=== PATIENT | male | born 1950 | race Caucasian/White ===

== ENCOUNTER 2018-03-12 20:10 | Inpatient (IN) | payer OTHER ==
[2018-03-12 20:15] VITALS: BMI 33.6
[2018-03-12] MEDS ORDERED: AMIODARONE HCL 150 MG/3 ML VIAL IVPUSH ONE ×2 (20:41→20:44)
--- NOTE | 2018-03-12 20:44 | PDOC ---
History of Present Illness - History of Present Illness Initial Comments: 03/12/18 20:39 Mr. Saunders is a 67 yo male w/ pmh of HTN, hypothyroidism, arrythmia s/p pacemaker/defibrillator placement who presents for evaluation of defibrillator going off. Patient reports he was walking around today (patient is visiting [facility] ) and felt a warm sensation in his chest before his defibrillator went off (2x) . Patient reports he had a 3rd episode while in ED. 4th episode occurred during interview. The patient denies shortness of breath, headache and dizziness. Denies fever, chills, nausea, vomit, diarrhea and constipation. Denies dysuria, frequency, urgency and hematuria. Allergies: Penicillins <Ton Cool - Last Filed: 03/12/18 21:34> <Saulo Cat - Last Filed: 03/13/18 21:52> - General Chief Complaint: Shortness of Breath Stated Complaint: PACEMAKER PROBLEM Time Seen by Provider: 03/12/18 20:37 Past History - Past Medical History Cancer: Yes (SQUAMOUS CEEL CARCINOMA) Cardiac Disorders: Yes COPD: No HTN: Yes Hypercholesterolemia: Yes Thyroid Disease: Yes Other medical history: GOUT - Surgical History Appendectomy: Yes Cardiac Surgery: Yes (DEFIBRILLATOR) Cholecystectomy: Yes - Suicide/Smoking/Psychosocial Hx Smoking History: Never smoked <Ton Cool - Last Filed: 03/12/18 21:34> <Saulo Cat - Last Filed: 03/13/18 21:52> - Past Medical History Allergies/Adverse Reactions: Allergies Allergy/AdvReac Type Severity Reaction Status Date / Time Penicillins Allergy Verified 03/12/18 20:16 Review of Systems - Review of Systems Comments:: 03/12/18 20:41 GENERAL/CONSTITUTIONAL: No fever or chills. No weakness. HEAD, EYES, EARS, NOSE AND THROAT: No change in vision. No ear pain or discharge. No sore throat. CARDIOVASCULAR: +Cardiac symptoms as described. RESPIRATORY: No cough, wheezing, or hemoptysis. GASTROINTESTINAL: No nausea, vomiting, diarrhea or constipation. GENITOURINARY: No dysuria, frequency, or change in urination. MUSCULOSKELETAL: No joint or muscle swelling or pain. No neck or back pain. SKIN: No rash NEUROLOGIC: No headache, vertigo, loss of consciousness, or change in strength/ sensation. ENDOCRINE: No increased thirst. No abnormal weight change HEMATOLOGIC/LYMPHATIC: No anemia, easy bleeding, or history of blood clots. ALLERGIC/IMMUNOLOGIC: No hives or skin allergy. <Ton Cool - Last Filed: 03/12/18 21:34> *Physical Exam - Vital Signs Last Vital Signs Temp Pulse Resp BP Pulse Ox 97.7 F 85 18 169/88 97 03/12/18 20:11 03/12/18 20:11 03/12/18 20:11 03/12/18 20:11 03/12/18 20:11 <Ton Cool - Last Filed: 03/12/18 21:34> - Vital Signs Last Vital Signs Temp Pulse Resp BP Pulse Ox 98.7 F 68 20 131/72 97 03/13/18 20:37 03/13/18 20:37 03/13/18 20:37 03/13/18 20:37 03/13/18 20:37 <Saulo Cat - Last Filed: 03/13/18 21:52> ED Treatment Course - LABORATORY CBC & Chemistry Diagram: 03/12/18 20:42 03/12/18 20:42 - RADIOLOGY Radiology Studies Ordered: Category Date Time Status CHEST X-RAY PORTABLE* [RAD] Stat Radiology 03/12/18 20:38 Ordered <Ton Cool - Last Filed: 03/12/18 21:34> - LABORATORY CBC & Chemistry Diagram: 03/12/18 20:42 03/13/18 06:50 - ADDITIONAL ORDERS Additional order review: 03/12/18 20:42 RBC 5.16 MCV 92.4 MCHC 34.2 RDW 14.3 MPV 7.1 L Neutrophils % 56.7 Lymphocytes % 22.5 Monocytes % 14.1 H Eosinophils % 5.6 H Basophils % 1.1 - Medications Given in the ED: ED Medications Discontinued Medications Generic Name Dose Route Start Last Admin Trade Name Freq PRN Reason Stop Dose Admin Amiodarone HCl 150 mg 03/12/18 20:41 03/12/18 20:56 Cordarone Injection - IVPUSH 03/12/18 20:42 Not Given ONCE ONE Amiodarone HCl 300 mg 03/12/18 20:44 03/12/18 20:50 Cordarone Injection - IVPUSH 03/12/18 20:45 300 mg ONCE ONE Administration Carvedilol 6.25 mg 03/13/18 10:00 03/13/18 09:57 Coreg - PO 6.25 mg BID LESLY Administration Heparin Sodium (Porcine) 5,000 unit 03/13/18 06:00 03/13/18 06:17 Heparin - SQ 5,000 unit TID LESLY Administration Potassium Chloride 10 meq in 100 mls @ 100 mls/hr 03/13/18 01:00 03/13/18 02: 07 Potassium Chloride 10 Meq Premix Ivpb - IVPB 03/13/18 02:59 Not Given Q60M LESLY Morphine Sulfate 4 mg 03/12/18 20:48 03/12/18 21:02 Morphine Injection - IVPUSH 03/12/18 20:49 4 mg ONCE ONE Administration Potassium Chloride 40 meq 03/13/18 00:33 03/13/18 01:28 K-Dur - PO 03/13/18 00:34 40 meq ONCE ONE Administration Potassium Chloride 40 meq 03/13/18 10:00 03/13/18 09:57 K-Dur - PO 03/13/18 10:01 40 meq ONCE ONE Administration <Saulo Cat - Last Filed: 03/13/18 21:52> Medical Decision Making - Medical Decision Making 03/12/18 20:48 Mr. Saunders is a 67 yo male w/ pmh as described who presents for evaluation of defibrillator firing. Discussed patient with Dr. Loredo (cardiology functional consultant) who recommended 300mg amiodarone push in addition to maintenance drip. Plan for lidocaine if refractory to this. Transfer if refractory to lido. Will run 12- lead rhythm strip and attempt to capture episode Patient currently pending workup; amiodarone being administered. 03/12/18 21:34 No further episodes after amiodarone push. Drip started as well. Labs grossly unconcerning as below. Admitting patient for cardiology workup. Laboratory Results - last 24 hr 03/12/18 03/12/18 03/12/18 20:42 20:42 20:42 WBC 9.0 RBC 5.16 Hgb 16.3 Hct 47.7 MCV 92.4 MCH 31.6 MCHC 34.2 RDW 14.3 Plt Count 212 MPV 7.1 L Absolute Neuts (auto) 5.1 Neutrophils % 56.7 Lymphocytes % 22.5 Monocytes % 14.1 H Eosinophils % 5.6 H Basophils % 1.1 Nucleated RBC % 0 Sodium 141 Potassium 3.5 Chloride 105 Carbon Dioxide 24 Anion Gap 12 BUN 21 H Creatinine 1.0 Creat Clearance w eGFR > 60 Random Glucose 146 H Calcium 9.3 Magnesium 2.0 Total Bilirubin 0.7 AST 21 ALT 39 Alkaline Phosphatase 116 Creatine Kinase 125 Troponin I < 0.02 B-Natriuretic Peptide 179.75 H Total Protein 7.1 Albumin 3.9 <Ton Cool - Last Filed: 03/12/18 21:34> *DC/Admit/Observation/Transfer - Discharge Dispostion Decision to Admit order: Yes <Ton Cool - Last Filed: 03/12/18 21:34> <Saulo Cat - Last Filed: 03/13/18 21:52> Diagnosis at time of Disposition: Defibrillator discharge, Ventricular tachycardia
[2018-03-12] MEDS ORDERED: morphine CARPU-JECT 4 MG/1 ML DISP.SYRIN IVPUSH ONE (20:48)
[2018-03-12] MEDS ORDERED: AMIODARONE HCL 150 MG/3 ML VIAL ONE (20:49)
[2018-03-12 20:51] LABS: BASO % 1.1 % (0-2.0); EOS % 5.6 % (0-4.5); HEMATOCRIT 47.7 % (35.4-49); HEMOGLOBIN 16.3 GM/dL (11.7-16.9); LYMPH % 22.5 % (8-40); MCH 31.6 pg (25.7-33.7); MCHC 34.2 g/dl (32.0-35.9); MEAN CELL VOLUME 92.4 fl (80-96); MEAN PLT VOLUME 7.1 fl (7.5-11.1); MONO % 14.1 % (3.8-10.2); NEUT % 56.7 % (42.8-82.8); PLATELET COUNT 212 K/MM3 (134-434); RBC 5.16 M/mm3 (4.00-5.60); RDW 14.3 % (11.9-15.9)
--- NOTE | 2018-03-12 20:54 | PDOC ---
Attending Attestation - Resident Resident Name: Ton Cool - ED Attending Attestation I have performed the following: I have examined & evaluated the patient, The case was reviewed & discussed with the resident, I agree w/resident's findings & plan, Exceptions are as noted - HPI HPI: 03/12/18 20:48 67y M hx of thyroid disease, gout, HTN, cardiac disease s/p AICD presents for evaluation of his PM going off. Pt states he is visiting from [place] and was feeling well today while he was touring, but feels worn out. He was on the bus this evening when he felt a 'warm sensation' prior to the deibrilatorgoing off. He notes it has gone off another time in the ED. Pt notes he was otherwise asypmtmatic earlier today without any cp, sob, lightheadedness, n/v, diaphoresis , leg swelling. During our evaluation, pt had a run of VT with a shock that was delivered by his AICD. Will start amiodarone for his VT will give morphine will ck labs/lytes/tsh - Physicial Exam PE: GENERAL: The patient is awake, alert, and fully oriented, Nontoxic - in no acute distress. obese HEAD: Normocephalic, atraumatic. EYES: extraocular movements intact, sclera anicteric, conjunctiva clear. ENT: Normal voice, Moist mucous membranes. NECK: Normal range of motion, supple LUNGS: Breath sounds equal, clear to auscultation bilaterally. No wheezes, no rhonchi, no rales. HEART: regular, AICD in left chest ABDOMEN: Soft, nontender, No guarding, no rebound. . No CVA tenderness EXTREMITIES: Normal range of motion, trace edema. NEUROLOGICAL: No facial assymetry, Normal speech, PSYCH: Normal mood, normal affect. SKIN: Warm, Dry, normal turgor, - Critical Care Time Total Critical Care Time: 45 Critical Care Statement: The care of this patient involved high complexity decision making to prevent further life threatening deterioration of the patient 's condition and/or to evaluate & treat vital organ system(s) failure or risk of failure. - Medical Decision Making 03/12/18 23:58 pt stable on amio gtt no further events labs unremarkble will admit to tele Heart Score/ECG Review - ECG Impressions Comment:: 03/12/18 20:54 Paced ventricular rhthm rate of 91 no changes suggestive of acute ischemia via sgarbossa criteria
[2018-03-12] MEDS ORDERED: morphine SULFATE 4 MG/ML VIAL ONE (20:58)
[2018-03-12 21:19] LABS: ALBUMIN 3.9 g/dl (3.4-5.0); ANION GAP 12 MMOL/L (8-16); BILIRUBIN,TOTAL 0.7 mg/dL (0.2-1.0); BLOOD UREA NITROGEN 21 mg/dL (7-18); CALCIUM 9.3 mg/dL (8.5-10.1); CHLORIDE 105 mmol/L (98-107); CO2 24 mmol/L (21-32); GLUCOSE,RANDOM 146 mg/dL (74-106); POTASSIUM 3.5 mmol/L (3.5-5.1); SGOT/AST 21 U/L (15-37); SGPT/ALT 39 U/L (13-61); SODIUM 141 mmol/L (136-145); TOT PROT 7.1 g/dl (6.4-8.2)
[2018-03-12 21:22] LABS: ALK PHOS 116 U/L (45-117)
[2018-03-12 21:29] LABS: N-TERMINAL BNP 179.75 pg/ml (5-125)
[2018-03-12] MEDS: AMIODARONE IN DEXTROSE,ISO-OSM 360 MG/200 ML BAG IVPB SCH (21:51)
--- NOTE | 2018-03-12 22:36 | PN ---
Teaching Attending Note Name of Resident: Jennifer Choi ATTENDING PHYSICIAN STATEMENT I saw and evaluated the patient. I reviewed the resident's note and discussed the case with the resident. I agree with the resident's findings and plan as documented. SUBJECTIVE: Patient is a 67 year old man with history of treated throat cancer, right knee replacement, hypothyroidism, penicillin allergy, gout, HTN, and cardiac disease s/p AICD presents for evaluation of his PM going off. He is visiting from [place] and was feeling well today while he was touring, but feels worn out. He was on the bus this evening when he felt a 'warm sensation' prior to the defibrillator going off. He notes it has gone off another time in the ED. Pt notes he was otherwise asymptomatic earlier today without any chest pain, sob, lightheadedness, n/v, diaphoresis, or leg swelling. During evaluation by ER staff, he had a run of VT with a shock that was delivered by his AICD. In the ER he got a bolus dose of amiodarone and then the drip for VTach. OBJECTIVE: Alert Vital Signs Period Temp Pulse Resp BP Sys/Schaeffer Pulse Ox Last 24 Hr 97.7 F 85 18 169/88 97 HEENT: No Jaundice, eye redness or discharge, PERRLA, EOMI. Dry mucous membrane. Normocephalic, atraumatic. External ears are normal and hearing is grossly intact. No nasal discharge. Neck: Supple, nontender. Surgiacl scar right neck. No palpable adenopathy or thyromegaly. No JVD Chest: Good effort. Fine right basilar rales. Clear to percussion. Heart: Regular. No S3, rub or murmur Abdomen: Not distended, soft, nontender and no HSM. No rebound or guarding. Normoactive bowel sounds. Ext: Peripheral pulses intact. No leg edema. Skin: Warm and dry. No petechiae, rash or ecchymosis. Neuro: Alert. Oriented x3. CN 2-12 grossly intact. Sensation grossly intact in all four extremities and DTR are symmetric. Current Medications Generic Name Dose Route Start Last Admin Trade Name Freq PRN Reason Stop Dose Admin Amiodarone HCl/Dextrose 360 mg in 200 mls @ 16.667 mls/hr 03/12/18 21:00 21:51 Nexterone 360 Mg/200 Ml Bag IVPB 0.5 mg/min TITR LESLY 16.667 mls/hr Administration Protocol 0.5 MG/MIN Abnormal Lab Results 03/12/18 03/12/18 03/12/18 20:42 20:42 20:42 MPV 7.1 L Monocytes % 14.1 H Eosinophils % 5.6 H BUN 21 H Random Glucose 146 H B-Natriuretic Peptide 179.75 H ASSESSMENT AND PLAN: 1. Vtach/Defibrillator discharge - Continue IV amiodarone drip on telemetry. No changes of ACS on EKG. Will repeat troponin and EKG, give IV and PO KCL (get K > 4) , check free T4, phosphate, HbA1c and encourage liberal oral fluid intake. Call his hot wort settler and arrange for defibrillator interrogation. 2. Obesity - Will provide patient all the necessary assistance, counseling and positive reinforcement to facilitate weight loss. Consult correspondence representative. 3. DVT prophylaxis - Lovenox 40 mg SQ q 24 hours. 4. Advance directives - Full code
[2018-03-13 00:14] LABS: URINE APPEARANCE CLEAR; URINE BILIRUBIN NEGATIVE (<2.0 mg/dL); URINE COLOR STRAW; URINE GLUCOSE (UA) NEGATIVE (NEGATIVE); URINE KETONE NEGATIVE (NEGATIVE); URINE LEUK ESTERASE NEGATIVE (NEGATIVE); URINE NITRITE NEGATIVE (NEGATIVE); URINE PROTEIN NEGATIVE (NEGATIVE); URINE UROBILINOGEN NEGATIVE mg/dL (0.2-1.0)
[2018-03-13 00:17] LABS: URINE HYALINE CAST 1 /lpf; URINE MUCUS RARE
--- NOTE | 2018-03-13 00:26 | HP ---
CHIEF COMPLAINT: Defibrillator shock PCP: PCP in [place] Housekeeper Supervisor: Dr. Liam Mullins ([phone]) HISTORY OF PRESENT ILLNESS: Patient is a 67 year old male with a significant PMHx of CAD S/P NJ and AICD, HTN, HLD, Hypothyroidism (radiation induced), gout, throat cancer who presented today after being shocked by his defibrillator twice. Patient reports he is visiting from [place] and arrived yesterday to [facility]. He woke up this morning in his normal state of health and went walking around [place] with his . Patient reports he did not drink much water today and his first meal around 13: 00. Patient then states around 14:00 when he was sitting in the bus, he became flushed with a feeling of "hot flashes" throughout his body, and was then shocked by his defibrillator. Patient then went back to his hotel room and around 19:00 he started feeling the hot flashes and flushing and was then shocked again, which promoted this hospital visit. When he arrived, patient had multiple witnessed episodes of his defibrillator shocking him by the ED staff. He was found to have V-tach on the monitor and patient was placed on an Amio drip. According to patient, he had a defibrillator placed from [id number] and was never shocked by it. He had is upgraded and replaced last year and has had only one episode of his defibrillator shocking him. Patient gets his defibrillator interrogated every three months Patient reports seeing his Housekeeper Supervisor every year Otherwise, patient denies any chest pain, palpitations, shortness of breath, dizziness, lightheadedness, acute vision changes, fever, chills, nausea, vomiting, abdominal pain, constipation, diarrhea, dysuria, hematuria, frequency , urgency. ER course was notable for: (1) Defibrillator discharged x 3-4 times (2) Amiodarone drip started (3) Recent Travel: Traveling from [place] PAST MEDICAL HISTORY: CAD S/P NJ and AICD, HTN, HLD, Hypothyroidism (radiation induced), throat cancer PAST SURGICAL HISTORY: Right knee replacement (2016) Cholecystectomy (2012) Appendectomy Hernia Repair x3 (1983,1991,1993) Social History: Retired [employer] . Retired [employer] worker. Lives with . Smoking: Former 3PPD smoker. Quit 1990 Alcohol: Former Alcohol abuse. Last drink 1980 Drugs: Denies Family History: Father- from esophageal cancer, Had an NJ at age 64 Mother- strokr Allergies: Penicillins Allergy (Verified 03/12/18 20:16). HIVES HOME MEDICATIONS: Home Medications Medication Instructions Recorded Allopurinol [Zyloprim -] 100 mg PO DAILY 03/12/18 Aspirin [ASA -] 81 mg PO DAILY 03/12/18 Carvedilol [Coreg -] 6.25 mg PO BID 03/12/18 Cholecalciferol (Vitamin D3) 2,000 unit PO DAILY 03/12/18 [Vitamin D3] Levothyroxine [Synthroid -] 125 mcg PO DAILY 03/12/18 Lisinopril [Prinivil] 20 mg PO DAILY 03/12/18 [place]-3/Dha/Epa/Fish Oil [Fish Oil 2,000 mg PO DAILY 03/12/18 1,000 mg Softgel] Saw/Vit E/Sod Ebony/Lyc/Beta/Pyg 2 each PO DAILY 03/12/18 [Prostate Health Caplet] Simvastatin 10 mg PO DAILY 03/12/18 REVIEW OF SYSTEMS CONSTITUTIONAL: Absent: fever, chills, diaphoresis, generalized weakness, malaise, loss of appetite, weight change HEENT: Absent: rhinorrhea, nasal congestion, throat pain, throat swelling, difficulty swallowing, mouth swelling, ear pain, eye pain, visual changes CARDIOVASCULAR: Absent: chest pain, syncope, palpitations, irregular heart rate, lightheadedness , peripheral edema RESPIRATORY: Absent: cough, shortness of breath, dyspnea with exertion, orthopnea, wheezing, stridor, hemoptysis GASTROINTESTINAL: Absent: abdominal pain, abdominal distension, nausea, vomiting, diarrhea, constipation, melena, hematochezia GENITOURINARY: Absent: dysuria, frequency, urgency, hesitancy, hematuria, flank pain, genital pain MUSCULOSKELETAL: Absent: myalgia, arthralgia, joint swelling, back pain, neck pain SKIN: Absent: rash, itching, pallor HEMATOLOGIC/IMMUNOLOGIC: Absent: easy bleeding, easy bruising, lymphadenopathy, frequent infections ENDOCRINE: Absent: unexplained weight gain, unexplained weight loss, heat intolerance, cold intolerance NEUROLOGIC: Absent: headache, focal weakness or paresthesias, dizziness, unsteady gait, seizure, mental status changes, bladder or bowel incontinence PSYCHIATRIC: Absent: anxiety, depression, suicidal or homicidal ideation, hallucinations. PHYSICAL EXAMINATION Vital Signs - 24 hr 03/12/18 03/12/18 03/12/18 20:11 23:40 23:41 Temperature 97.7 F 97.5 F L Pulse Rate 85 78 Respiratory 18 20 Rate Blood Pressure 169/88 115/82 O2 Sat by Pulse 97 97 Oximetry (%) GENERAL: Awake, alert, and fully oriented, in no acute distress. EYES: Pupils equal, round and reactive to light, extraocular movements intact, sclera anicteric, conjunctiva clear. No lid lag. EARS, NOSE, THROAT: Oropharynx clear without exudates. Dry mucous membranes. NECK: (-) lymphadenopathy, JVD, or masses. LUNGS: Fine right basilar rales. No accessory muscle use. HEART: Regular rate and rhythm, normal S1 and S2 ABDOMEN: Soft, obese, nontender, not distended, normoactive bowel sounds, no guarding, no rebound, no masses. (+) LLQ vertical incision with no erythema LOWER EXTREMITIES: 2+ pulses, warm, well-perfused. No calf tenderness. No peripheral edema. NEUROLOGICAL: Cranial nerves II-XII intact. Normal speech. Motor strength 5/5 bilaterally with sensory intact PSYCHIATRIC: Cooperative. Good eye contact. Appropriate mood and affect. SKIN: Warm, dry, normal turgor, no rashes or lesions noted, normal capillary refill. Laboratory Results - last 24 hr 03/12/18 03/12/18 03/12/18 20:42 20:42 20:42 WBC 9.0 RBC 5.16 Hgb 16.3 Hct 47.7 MCV 92.4 MCH 31.6 MCHC 34.2 RDW 14.3 Plt Count 212 MPV 7.1 L Absolute Neuts (auto) 5.1 Neutrophils % 56.7 Lymphocytes % 22.5 Monocytes % 14.1 H Eosinophils % 5.6 H Basophils % 1.1 Nucleated RBC % 0 Sodium 141 Potassium 3.5 Chloride 105 Carbon Dioxide 24 Anion Gap 12 BUN 21 H Creatinine 1.0 Creat Clearance w eGFR > 60 Random Glucose 146 H Calcium 9.3 Magnesium 2.0 Total Bilirubin 0.7 AST 21 ALT 39 Alkaline Phosphatase 116 Creatine Kinase 125 Troponin I < 0.02 B-Natriuretic Peptide 179.75 H Total Protein 7.1 Albumin 3.9 TSH Urine Color Urine Appearance Urine pH Ur Specific [place] Urine Protein Urine Glucose (UA) Urine Ketones Urine Blood Urine Nitrite Urine Bilirubin Urine Urobilinogen Ur Leukocyte Esterase Urine WBC (Auto) Urine RBC (Auto) Hyaline Casts Urine Mucus 03/12/18 03/13/18 22:25 00:01 WBC RBC Hgb Hct MCV MCH MCHC RDW Plt Count MPV Absolute Neuts (auto) Neutrophils % Lymphocytes % Monocytes % Eosinophils % Basophils % Nucleated RBC % Sodium Potassium Chloride Carbon Dioxide Anion Gap BUN Creatinine Creat Clearance w eGFR Random Glucose Calcium Magnesium Total Bilirubin AST ALT Alkaline Phosphatase Creatine Kinase Troponin I B-Natriuretic Peptide Total Protein Albumin TSH 0.70 Urine Color Straw Urine Appearance Clear Urine pH 5.0 Ur Specific [place] 1.008 Urine Protein Negative Urine Glucose (UA) Negative Urine Ketones Negative Urine Blood 1+ H Urine Nitrite Negative Urine Bilirubin Negative Urine Urobilinogen Negative Ur Leukocyte Esterase Negative Urine WBC (Auto) None Urine RBC (Auto) <1 Hyaline Casts 1 Urine Mucus Rare Chest X-Ray (03/12/18): Cardiomegaly with no acute pathology. ASSESSMENT/PLAN: Patient is a 67 year old male who presented here after his defibrillator shocked him. Patient in the ED was witnessed to have 3-4 more defibrillator shocks and admitted to telemetry for further monitoring and management. V-Tach with Defibrillator Discharge -Patient started on Amiodarone drip with no episodes of shock since then. -Continuous cardiac monitoring -Called [employer] for interrogation -Attempted to call Housekeeper Supervisor for further history as patient is not on any antiarrhythmic medications -Replete any electrolyte abnormalities such as potassium -Lipid panel, A1C, and TSH ordered -Repeat EKG and trop. First set negative Hypokalemia -KCl 40meq PO ordered tonight and in the AM -KCl 20MEQ IV ordered Hyperglycemia -Denies history of DM -A1Co ordered HTN -Continue home medication lisinopril 20mg daily -Continue Coreg 6.25mg BID -Continue to monitor BP Gout -Continue home medication Allopurinol 100mg daily HLD -Continue home medication Simvastatin 10mg HS CAD S/P NJ -Continue ASA 81 mg daily F/E/N -Tolerates PO. NO fluids -Hypokalemia. Replete and repeat -Sodium controlled diet Prophylaxis -Moderate risk. Heparin 5000 units SQ TID for DVT -No Gi required Disposition -Full code -Awaiting for sales department manager in [place] to call back. Interrogation of AICD. Overnight telemetry monitoring -Medication Reconciliation done Case discussed with attending, Dr. Ordonez . Jennifer Choi [id number] Visit type - Emergency Visit Emergency Visit: Yes ED Registration Date: 03/12/18 Care time: The patient presented to the Emergency Department on the above date and was hospitalized for further evaluation of their emergent condition. - New Patient This patient is new to me today: Yes Date on this admission: 03/12/18 - Critical Care Critical Care patient: No Hospitalist Screening - Colonoscopy Questionnaire Colonoscopy Questionnaire: Colonoscopy Questionnaire - Patient: 50 - 75 years old and never had a screening colonoscopy: No History of colon or rectal polyps, or CA: No History of IBD, Crohn's disease or UC: No History of abdominal radiation therapy as a child: No - Relative: 1 with colon or rectal CA, or polyps at age 60 or younger: No Colon or rectal CA diagnosed at age 45 or younger: No Multiple relatives with colon or rectal CA: No - Outcome: Screening Result: Negative Screen
[2018-03-13] MEDS ORDERED: POTASSIUM CHLORIDE TABS 20 MEQ TABLET.ER (FP) PO ONE ×2 (00:33→10:00)
[2018-03-13] MEDS ORDERED: POTASSIUM CHLORIDE 20 MEQ PREMIX IVPB 100 ML IVPB ONE (00:34)
[2018-03-13] MEDS ORDERED: KCL 10 MEQ IVPB 10 MEQ/100 ML INFUS.BAG IVPB SCH (01:00)
[2018-03-13] MEDS ORDERED: HEPARIN NA (PORCINE) 5,000 UNITS/ML 1ML VIAL SQ SCH (06:00)
[2018-03-13] MEDS ORDERED: LEVOTHYROXINE NA 125 MCG TABLET (FP) PO SCH (07:00)
[2018-03-13 08:31] LABS: CALCIUM 8.5 mg/dL (8.5-10.1); CHLORIDE 106 mmol/L (98-107); POTASSIUM 3.9 mmol/L (3.5-5.1); SODIUM 142 mmol/L (136-145)
[2018-03-13 08:37] LABS: ANION GAP 11 MMOL/L (8-16); BLOOD UREA NITROGEN 17 mg/dL (7-18); CHOLESTEROL 146 mg/dL (50-200); CO2 25 mmol/L (21-32); CREATININE 0.9 mg/dL (0.55-1.3); GLUCOSE,RANDOM 114 mg/dL (74-106); HDL CHOLESTEROL 34 mg/dL (40-60); PHOSPHOROUS 3.7 mg/dL (2.5-4.9); TRIGLYCERIDES 101 mg/dL (0-150)
--- NOTE | 2018-03-13 09:20 | CON.CARD ---
Consult Consult Specialty:: cardio - History of Present Illness Chief Complaint: defibrillator shocks History of Present Illness: 67 male visiting from out of the area, c/o multiple ICD shocks on DOA. also noted feeling warmth in body, and presyncope immediately prior to some of the shocks. did not experience any chest pain otherwise, no sob. has h/o nonischemic CMP he says, had ICD placed years ago at time of "heart attack" that was purely "electrical". then upgraded to [employer] device ([employer]) 2016. says he never had any shocks or documented arrhythmias previously. used to feel sob at times with exertion--improved significantly since had [employer] upgrade. walked a lot yest for sightseeing and no sob, cp. PMH: thyroid disease, gout, HTN denies etoh father had sudden /"heart attack" grandmother same - Alcohol/Substance Use Hx Alcohol Use: No - Smoking History Smoking history: Never smoked Home Medications - Allergies Allergies/Adverse Reactions: Allergies Allergy/AdvReac Type Severity Reaction Status Date / Time Penicillins Allergy Verified 03/12/18 20:16 - Home Medications Home Medications: Ambulatory Orders Allopurinol [Zyloprim -] 100 mg PO DAILY 03/12/18 Aspirin [ASA -] 81 mg PO DAILY 03/12/18 Carvedilol [Coreg -] 6.25 mg PO BID 03/12/18 Cholecalciferol (Vitamin D3) [Vitamin D3] 2,000 unit PO DAILY 03/12/18 Levothyroxine [Synthroid -] 125 mcg PO DAILY 03/12/18 Lisinopril [Prinivil] 20 mg PO DAILY 03/12/18 [place]-3/Dha/Epa/Fish Oil [Fish Oil 1,000 mg Softgel] 2,000 mg PO DAILY 03/12/18 Saw/Vit E/Sod Ebony/Lyc/Beta/Pyg [Prostate Health Caplet] 2 each PO DAILY Simvastatin 10 mg PO DAILY 03/12/18 Review of Systems - Review of Systems Constitutional: denies: Chills, Fever Eyes: denies: Eye Pain HENT: denies: Nasal Congestion Neck: denies: Stiffness Cardiovascular: denies: Palpitations Respiratory: denies: Orthopnea, PND Gastrointestinal: denies: Diarrhea, Rectal Bleeding Genitourinary: denies: Burning, Hematuria Musculoskeletal: denies: Muscle Pain Integumentary: denies: Rash Neurological: denies: Numbness, Seizure, Syncope Endocrine: denies: Excessive Sweating Hematology/Lymphatic: denies: Excessive Bleeding Vital Signs: Vital Signs Temperature 98.2 F 03/13/18 05:00 Pulse Rate 69 03/13/18 05:00 Respiratory Rate 20 03/13/18 05:00 Blood Pressure 140/87 03/13/18 05:00 O2 Sat by Pulse Oximetry (%) 97 03/13/18 00:00 Constitutional: Yes: Well Nourished, No Distress Eyes: No: Sclera Icterus HENT: No: Nasal Congestion Neck: No: Decreased ROM Respiratory: Yes: CTA Bilaterally. No: Accessory Muscle Use, Rales, Wheezes Gastrointestinal: Yes: Normal Bowel Sounds. No: Distention, Hepatomegaly, Palpable Mass, Tenderness Cardiovascular: Yes: Regular Rate and Rhythm JVD: No Carotid Bruit: No PMI: Non-Displaced Heart Sounds: Yes: S1, S2. No: Gallop Murmur: No: Systolic Murmur, Diastolic Murmur Musculoskeletal: Yes: Other (No kyphosis) Extremities: No: Cool, Cyanosis Edema: No Peripheral Pulses: 2+ Left Carotid, 2+ Right Carotid, 2+ Left Doralis Pedis, 2+ Right Dorsalis Pedis Integumentary: No: Jaundice Neurological: Yes: Alert, Oriented (x3) Psychiatric: No: Agitated - Other Data Labs, Other Data: CBC, BMP 03/12/18 20:42 03/13/18 06:50 Troponin, BNP 03/12/18 03/12/18 03/13/18 20:42 20:42 03:00 Troponin I < 0.02 0.05 B-Natriuretic Peptide 179.75 H Troponin, BNP 03/12/18 03/12/18 03/13/18 20:42 20:42 03:00 Troponin I < 0.02 0.05 B-Natriuretic Peptide 179.75 H Laboratory Tests 03/12/18 03/12/18 03/12/18 20:42 20:42 20:42 WBC 9.0 Hgb 16.3 Plt Count 212 Sodium Potassium Carbon Dioxide BUN Creatinine AST 21 ALT 39 Troponin I < 0.02 B-Natriuretic Peptide 179.75 H Triglycerides Cholesterol Total LDL Cholesterol HDL Cholesterol TSH 03/12/18 03/13/18 03/13/18 22:25 03:00 06:50 WBC Hgb Plt Count Sodium 142 Potassium 3.9 Carbon Dioxide 25 BUN 17 Creatinine 0.9 AST ALT Troponin I 0.05 B-Natriuretic Peptide Triglycerides 101 Cholesterol 146 Total LDL Cholesterol 104 H HDL Cholesterol 34 L TSH 0.70 Assessment/Plan ECG 03/13 (3:21): NSR, v-paced CXR: clear lungs/pleura tele: NSR, v-paced. PVCs. no VT s/p ICD with recurrent shocks, VTach: -underlying arrhythmia/structural substrate unknown -K/Mag ok--keep > 4/2 respectively -no s/sx suggests acute myocardial ischemia -ICD interrogation this AM shows mult episodes of true VT (with shocks) as well as several episodes of AT/Afib -for transfer to at tertiary center--pt and /friends (with whom they drove to [place] from [place]) are deciding w [facility] and [facility] (he is a vet) -amio gtt started overnight to prevent recurrent shocks--continue for now -continue BB as doing (carvedilol, home regimen) paroxysmal afib/flutter: -multiple episodes yesterday, none since (on amio) -one lasted 45 min. -continue amio as doing -CHADS VASC = 3. will start UFH gtt to prophylax against cardioembolic events probably underlying chronic syst CHF: -pt on syst CHF med regimen (carvedilol, lisinopril) and has ICD -cxr clear, BNP 100 -not on diuretics per home meds list -clinically euvolemic appearing. no diuresis HPL: -cont home simva regimen
--- NOTE | 2018-03-13 09:52 | PN ---
Physical Exam: SUBJECTIVE: Patient seen and examined, no chest pain, palpitations, dyspnea, dizziness overnight. Reports lately has been feeling dizzy intermittently. OBJECTIVE: Vital Signs Period Temp Pulse Resp BP Sys/Schaeffer Pulse Ox Last 24 Hr 97.5 F-98.3 F 69-85 18-20 106-169/58-88 97-97 GENERAL: sitting in bed in no acute distress Neck: soft, supple, no JVD Abdomen:soft, obese, NT throughout, positive bowel sounds Chest: CTAB, no rales or wheezing Extremities: no edema Laboratory Results - last 24 hr 03/12/18 03/12/18 03/12/18 20:42 20:42 20:42 WBC 9.0 RBC 5.16 Hgb 16.3 Hct 47.7 MCV 92.4 MCH 31.6 MCHC 34.2 RDW 14.3 Plt Count 212 MPV 7.1 L Absolute Neuts (auto) 5.1 Neutrophils % 56.7 Lymphocytes % 22.5 Monocytes % 14.1 H Eosinophils % 5.6 H Basophils % 1.1 Nucleated RBC % 0 Sodium 141 Potassium 3.5 Chloride 105 Carbon Dioxide 24 Anion Gap 12 BUN 21 H Creatinine 1.0 Creat Clearance w eGFR > 60 Random Glucose 146 H Hemoglobin A1c % Calcium 9.3 Phosphorus Magnesium 2.0 Total Bilirubin 0.7 AST 21 ALT 39 Alkaline Phosphatase 116 Creatine Kinase 125 Troponin I < 0.02 B-Natriuretic Peptide 179.75 H Total Protein 7.1 Albumin 3.9 Triglycerides Cholesterol Total LDL Cholesterol HDL Cholesterol TSH Urine Color Urine Appearance Urine pH Ur Specific [place] Urine Protein Urine Glucose (UA) Urine Ketones Urine Blood Urine Nitrite Urine Bilirubin Urine Urobilinogen Ur Leukocyte Esterase Urine WBC (Auto) Urine RBC (Auto) Hyaline Casts Urine Mucus 03/12/18 03/13/18 03/13/18 22:25 00:01 03:00 WBC RBC Hgb Hct MCV MCH MCHC RDW Plt Count MPV Absolute Neuts (auto) Neutrophils % Lymphocytes % Monocytes % Eosinophils % Basophils % Nucleated RBC % Sodium Potassium Chloride Carbon Dioxide Anion Gap BUN Creatinine Creat Clearance w eGFR Random Glucose Hemoglobin A1c % Calcium Phosphorus Magnesium Total Bilirubin AST ALT Alkaline Phosphatase Creatine Kinase Troponin I 0.05 B-Natriuretic Peptide Total Protein Albumin Triglycerides Cholesterol Total LDL Cholesterol HDL Cholesterol TSH 0.70 Urine Color Straw Urine Appearance Clear Urine pH 5.0 Ur Specific [place] 1.008 Urine Protein Negative Urine Glucose (UA) Negative Urine Ketones Negative Urine Blood 1+ H Urine Nitrite Negative Urine Bilirubin Negative Urine Urobilinogen Negative Ur Leukocyte Esterase Negative Urine WBC (Auto) None Urine RBC (Auto) <1 Hyaline Casts 1 Urine Mucus Rare 03/13/18 03/13/18 06:50 06:50 WBC RBC Hgb Hct MCV MCH MCHC RDW Plt Count MPV Absolute Neuts (auto) Neutrophils % Lymphocytes % Monocytes % Eosinophils % Basophils % Nucleated RBC % Sodium 142 Potassium 3.9 Chloride 106 Carbon Dioxide 25 Anion Gap 11 BUN 17 Creatinine 0.9 Creat Clearance w eGFR > 60 Random Glucose 114 H Hemoglobin A1c % 5.4 Calcium 8.5 Phosphorus 3.7 Magnesium Total Bilirubin AST ALT Alkaline Phosphatase Creatine Kinase Troponin I B-Natriuretic Peptide Total Protein Albumin Triglycerides 101 Cholesterol 146 Total LDL Cholesterol 104 H HDL Cholesterol 34 L TSH Urine Color Urine Appearance Urine pH Ur Specific [place] Urine Protein Urine Glucose (UA) Urine Ketones Urine Blood Urine Nitrite Urine Bilirubin Urine Urobilinogen Ur Leukocyte Esterase Urine WBC (Auto) Urine RBC (Auto) Hyaline Casts Urine Mucus Home Medications Medication Instructions Recorded Allopurinol [Zyloprim -] 100 mg PO DAILY 03/12/18 Aspirin [ASA -] 81 mg PO DAILY 03/12/18 Carvedilol [Coreg -] 6.25 mg PO BID 03/12/18 Cholecalciferol (Vitamin D3) 2,000 unit PO DAILY 03/12/18 [Vitamin D3] Levothyroxine [Synthroid -] 125 mcg PO DAILY 03/12/18 Lisinopril [Prinivil] 20 mg PO DAILY 03/12/18 [place]-3/Dha/Epa/Fish Oil [Fish Oil 2,000 mg PO DAILY 03/12/18 1,000 mg Softgel] Saw/Vit E/Sod Ebony/Lyc/Beta/Pyg 2 each PO DAILY 03/12/18 [Prostate Health Caplet] Simvastatin 10 mg PO DAILY 03/12/18 Active Medications Generic Name Dose Route Start Last Admin Trade Name Freq PRN Reason Stop Dose Admin Allopurinol 100 mg 03/13/18 10:00 Zyloprim - PO DAILY [facility] Aspirin 81 mg 03/13/18 10:00 Asa - PO DAILY [facility] Atorvastatin Calcium 10 mg 03/13/18 22:00 Lipitor - PO HS [facility] Carvedilol 6.25 mg 03/13/18 10:00 Coreg - PO BID [facility] Heparin Sodium (Porcine) 5,000 unit 03/13/18 06:00 03/13/18 06:17 Heparin - SQ 5,000 unit TID [facility] Administration Amiodarone HCl/Dextrose 360 mg in 200 mls @ 16.667 mls/hr 03/12/18 21:00 21:51 Nexterone 360 Mg/200 Ml Bag IVPB 0.5 mg/min TITR [facility] 16.667 mls/hr Administration Protocol 0.5 MG/MIN Levothyroxine Sodium 125 mcg 03/13/18 07:00 03/13/18 06:17 Synthroid - PO 125 mcg DAILY@0700 [facility] Administration Lisinopril 20 mg 03/13/18 10:00 Prinivil PO DAILY [facility] Potassium Chloride 40 meq 03/13/18 10:00 K-Dur - PO 03/13/18 10:01 ONCE ONE Telemetry A sensing V pacing, no tachycardia events overnight EKG A sensing/V-pacing CXR large heart, ICD, no acute process ASSESSMENT/PLAN: 67 yom with pmhx of treated throat cancer, right knee replacement, hypothyroidism (radiation induced), penicillin allergy, gout, HTN, [place], ?NICM s/ p AICD admitted with symptoms of hot flashes/flushing, multiple episodes of ICD firing and Vtach -Ventricular tachycardia/ICD discharge -?NICM s/p AICD -?CAD -HTN -HLD -Throat cancer s/p treatment -Hypothyroidism (radiation induced) Plan: Amiodarone drip. Telemetry, no further events overnight. ICD interrogation, discussed with nursing. Follow up with Cardiology. Continue ASA/statin/coreg/ACEi/levothyroxine. Keep K.4, Mg> 2 and Phos >3. DVTPPX heparin Dispo will likely need transfer to tertiary care center for EP study and intervention pending ICD interrogation and cardiology input. Plan discussed with patient in detail, all questions answered. Discussed with nursing. Visit type - Emergency Visit Emergency Visit: Yes ED Registration Date: 03/12/18 Care time: The patient presented to the Emergency Department on the above date and was hospitalized for further evaluation of their emergent condition. - New Patient This patient is new to me today: Yes Date on this admission: 03/13/18 - Critical Care Critical Care patient: No - Discharge Referral Referred to [facility] No
[2018-03-13] MEDS ORDERED: ALLOPURINOL 100 MG TABLET (FP) PO SCH (10:00)
[2018-03-13] MEDS ORDERED: ASPIRIN 81 MG CHEWABLE TABLETS PO SCH (10:00)
[2018-03-13] MEDS ORDERED: LISINOPRIL 20 MG TABLET (FP) PO SCH (10:00)
[2018-03-13] MEDS ORDERED: CARVEDILOL 6.25 MG TABLET (FP) PO SCH ×2 (10:00→11:51)
[2018-03-13 10:16] LABS: MAGNESIUM 2.1 mg/dL (1.8-2.4); PHOSPHOROUS 3.9 mg/dL (2.5-4.9)
[2018-03-13] MEDS ORDERED: HEPARIN NA (PORCINE) 5,000 UNITS/ML 1ML VIAL IVPUSH PRN ×2 (11:49)
[2018-03-13] MEDS ORDERED: AMIODARONE HCL 150 MG/3 ML VIAL ONE ×2 (11:55→11:56)
[2018-03-13] MEDS ORDERED: HEPARIN - 25,000 UNIT in SODIUM CHLORIDE 495 ML IV SCH (12:00)
[2018-03-13] MEDS: CARVEDILOL 6.25 MG TABLET (FP) PO SCH ×2 (13:19→21:39)
[2018-03-13 20:40] VITALS: BP 131/72; PULSE 68; TEMP 98.7
--- NOTE | 2018-03-13 21:14 | EKG ---
Test Reason : Blood Pressure : / mmHG Vent. Rate : 070 BPM Atrial Rate : 070 BPM P-R Int : 176 ms QRS Dur : 170 ms QT Int : 504 ms P-R-T Axes : 006 267 052 degrees QTc Int : 544 ms Atrial-sensed ventricular-paced rhythm ABNORMAL ECG NO PREVIOUS ECGS AVAILABLE Confirmed by VEE PEGUERO MD ([id number]) on 03/13/2018 9:14:20 PM Referred By: Confirmed By:VEE PEGUERO MD
--- NOTE | 2018-03-13 21:25 | EKG ---
Test Reason : Blood Pressure : / mmHG Vent. Rate : 091 BPM Atrial Rate : 088 BPM P-R Int : 000 ms QRS Dur : 170 ms QT Int : 432 ms P-R-T Axes : 000 270 084 degrees QTc Int : 531 ms POOR DATA QUALITY, INTERPRETATION MAY BE ADVERSELY AFFECTED NORMAL SINUS RHYTHM WITH PREMATURE VENTRICULAR OR ABERRANTLY CONDUCTED COMPLEXES Ventricular-paced rhythm WITH OCCASIONAL atrial-paced complexes ABNORMAL ECG NO PREVIOUS ECGS AVAILABLE Confirmed by VEE PEGUERO MD ([id number]) on 03/13/2018 9:25:17 PM Referred By: Confirmed By:VEE PEGUERO MD
[2018-03-13] MEDS ORDERED: ATORVASTATIN CA 10 MG TABLET (FP) PO SCH (22:00)
[2018-03-13] MEDS: AMIODARONE IN DEXTROSE,ISO-OSM 360 MG/200 ML BAG IVPB SCH (22:18)
--- NOTE | 2018-03-14 07:42 | DS ---
Physical Exam: SUBJECTIVE: Patient seen and examined, no further chest pain, dizziness, palpitations, abdominal or urinary symptoms. Denies any recent orthopnea, PNA, or leg swelling. OBJECTIVE: Vital Signs Period Temp Pulse Resp BP Sys/Schaeffer Pulse Ox Last 24 Hr 97.2 F-98.7 F 66-74 20-22 103-137/58-77 96-97 PHYSICAL EXAM GENERAL: The patient is awake, alert, and fully oriented, in no acute distress. HEAD: Normal with no signs of trauma. EYES: PERRL, extraocular movements intact, sclera anicteric, conjunctiva clear. ENT: Ears normal, nares patent, oropharynx clear without exudates, moist mucous membranes. NECK: soft, supple, no JVD noted LUNGS: Breath sounds equal, clear to auscultation bilaterally, no wheezes, no crackles, no accessory muscle use. HEART: S1S2 regular. ABDOMEN: Soft, nontender, nondistended, normoactive bowel sounds, no guarding, no rebound, no hepatosplenomegaly, no masses. EXTREMITIES: 2+ pulses, warm, well-perfused, no edema. NEUROLOGICAL: Cranial nerves II through XII grossly intact. Normal speech, gait not observed. PSYCH: Normal mood, normal affect. SKIN: Warm, dry, normal turgor, no rashes or lesions noted. LABS Laboratory Results - last 24 hr 03/13/18 03/13/18 03/13/18 06:50 06:50 06:50 PTT (Actin FS) Sodium 142 Potassium 3.9 Chloride 106 Carbon Dioxide 25 Anion Gap 11 BUN 17 Creatinine 0.9 Creat Clearance w eGFR > 60 Random Glucose 114 H Hemoglobin A1c % 5.4 Calcium 8.5 Phosphorus 3.7 3.9 Magnesium 2.1 Troponin I Triglycerides 101 Cholesterol 146 Total LDL Cholesterol 104 H HDL Cholesterol 34 L 03/13/18 03/13/18 09:10 20:30 PTT (Actin FS) 65.2 H Sodium Potassium Chloride Carbon Dioxide Anion Gap BUN Creatinine Creat Clearance w eGFR Random Glucose Hemoglobin A1c % Calcium Phosphorus Magnesium Troponin I 0.04 Triglycerides Cholesterol Total LDL Cholesterol HDL Cholesterol ICD interrogation: mult episodes of true VT (with shocks) as well as several episodes of AT/Afib Telemetry: A sensing V pacing HOSPITAL COURSE: Date of Admission:03/12/18 Date of Discharge: 03/14/18 Minutes to complete discharge: 40 Discharge Summary Reason For Visit: IMPLANTABLE CARDIOVERTER-DEFIBRILLATOR Hospital Course: patient had ICD discharge in the ED multiple times with Ventricular tachycardia. He was placed on Amiodarone drip. No further episodes of tachycardia were noted inhouse. His telemetry showed A sensing with V pacing. His ICD was interrogated and noted with multiple episodes of true VT (with shocks) as well as several episodes of AT/Afib. He was seen by cardiology and also placed on heparin drip. His coreg/levothyroxine/lisinopril were continued. He had no evidence of volume overload on admission. ACS was ruled out. He was borderline hypokalemic and was repleted. He is being transferred overnigt on 03/14 to [facility] was further Electrophysiology testing and intervention. Condition: Improved - Instructions Diet, Activity, Other Instructions: Transferred to [facility] for further cardiac testing Disposition: TRANSFER ACUTE CARE/OTHER HOSP - Home Medications Comprehensive Discharge Medication List: Ambulatory Orders Allopurinol [Zyloprim -] 100 mg PO DAILY 03/12/18 Aspirin [ASA -] 81 mg PO DAILY 03/12/18 Carvedilol [Coreg -] 6.25 mg PO BID 03/12/18 Cholecalciferol (Vitamin D3) [Vitamin D3] 2,000 unit PO DAILY 03/12/18 Levothyroxine [Synthroid -] 125 mcg PO DAILY 03/12/18 Lisinopril [Prinivil] 20 mg PO DAILY 03/12/18 [place]-3/Dha/Epa/Fish Oil [Fish Oil 1,000 mg Softgel] 2,000 mg PO DAILY 03/12/18 Saw/Vit E/Sod Ebony/Lyc/Beta/Pyg [Prostate Health Caplet] 2 each PO DAILY Simvastatin 10 mg PO DAILY 03/12/18 Amiodarone HCl/D5w [Amiodarone 150 mg/100 ml-D5w] 150 mg IV DAILY #1 plast..bag 03/14/18 Heparin - 1,000 unit IVPUSH PRN PRN vial 03/14/18 Heparin - 5,000 unit IVPUSH PRN PRN vial 03/14/18 Heparin - 25,000 unit IV TITR vial 03/14/18 This patient is new to me today: Yes Date on this admission: 03/14/18 Emergency Visit: Yes ED Registration Date: 03/12/18 Care time: The patient presented to the Emergency Department on the above date and was hospitalized for further evaluation of their emergent condition. Critical Care patient: No - Discharge Referral Referred to [facility] No
== END 2018-03-14 01:30 | disposition short-term general hospital (02) | DRG 309 ==
LOC: JER 20:10 → UNDOADMIN 21:35 → JERBED 21:35 → J4W 03-13 00:52
PROVIDERS: ADMIT Internal Medicine; ATTEND Hospitalist
DX: I47.2 Ventricular tachycardia (principal); I50.22 Chronic systolic (congestive) heart failure; E03.9 Hypothyroidism, unspecified; M10.9 Gout, unspecified; E78.5 Hyperlipidemia, unspecified; I11.0 Hypertensive heart disease with heart failure; E66.9 Obesity, unspecified; R73.9 Hyperglycemia, unspecified; I48.92 Unspecified atrial flutter; E87.6 Hypokalemia; I25.10 Atherosclerotic heart disease of native coronary artery without angina pectoris; Z95.810 Presence of automatic (implantable) cardiac defibrillator; Z96.651 Presence of right artificial knee joint; Z88.0 Allergy status to penicillin; Z85.819 Personal history of malignant neoplasm of unspecified site of lip, oral cavity, and pharynx; Z68.33 Body mass index [BMI] 33.0-33.9, adult; I25.2 Old myocardial infarction; Z87.891 Personal history of nicotine dependence
CPT/HCPCS: 36415; 71045-TC-FY; 80048; 80053; 80061; 81003; 81015; 82550; 83036; 83721; 83735; 83880; 84100; 84443; 84484; 85025; 85730; 93005; 93010; 99284-25; J1644